=== PATIENT | male | born 1970 | race African-American/Black ===

== ENCOUNTER 2020-07-03 11:04 | Inpatient (IN) | payer OTHER ==
[2020-07-03 14:24] VITALS: BMI 27.6
[2020-07-03] MEDS ORDERED: ONDANSETRON *ODT* 4 MG TABLET SL PRN (14:27)
[2020-07-03] MEDS ORDERED: MAGNESIUM CITRATE 300 ML BOTTLE PO PRN (14:27)
[2020-07-03] MEDS ORDERED: MAG HYDROX/AL HYDROX/SIMETH 30 ML UNIT-DOSE CUP PO PRN (14:27)
[2020-07-03] MEDS ORDERED: BISMUTH SUBSALICYLATE 524 MG/30 ML UD PO PRN (14:27)
[2020-07-03] MEDS ORDERED: chlordiazePOXIDE HCL 25 MG CAPSULE PO PRN (14:27)
[2020-07-03] MEDS ORDERED: NICOTINE POLACRILEX 2 MG GUM BUC PRN (14:27)
[2020-07-03] MEDS ORDERED: ACETAMINOPHEN 325 MG TABLET (FP) PO PRN ×2 (14:27)
[2020-07-03] MEDS ORDERED: IBUPROFEN 400 MG TABLET (FP) PO PRN (14:27)
[2020-07-03] MEDS ORDERED: MAGNESIUM HYDROX 2400MG/30ML ORAL SUSPENSION 30 ML CUP PO PRN (14:27)
[2020-07-03] MEDS ORDERED: MENTHOL/PHENOL 1 EACH UD MM PRN (14:27)
[2020-07-03] MEDS ORDERED: METHOCARBAMOL 500 MG TABLET PO PRN (14:27)
[2020-07-03] MEDS ORDERED: LISINOPRIL 10 MG TABLET PO ONE (15:57)
[2020-07-03] MEDS ORDERED: LISINOPRIL 5 MG TABLET PO SCH (16:00)
[2020-07-03 17:23] LABS: HEMATOCRIT 40.9 % (35.4-49); HEMOGLOBIN 13.2 GM/dL (11.7-16.9); MCH 30.3 pg (25.7-33.7); MCHC 32.3 g/dl (32.0-35.9); MEAN CELL VOLUME 93.8 fl (80-96); MEAN PLT VOLUME 10.1 fl (7.5-11.1); PLATELET COUNT 224 K/MM3 (134-434); RBC 4.36 M/mm3 (4.00-5.60); RDW 14.4 % (11.9-15.9); WHITE BLOOD COUNT 4.9 K/mm3 (4.0-10.0)
[2020-07-03 17:24] LABS: POTASSIUM 3.9 mmol/L (3.5-5.1)
[2020-07-03 17:29] LABS: CALCIUM 8.7 mg/dL (8.5-10.1)
[2020-07-03 17:30] LABS: ALBUMIN 3.8 g/dl (3.4-5.0); BLOOD UREA NITROGEN 13.7 mg/dL (7-18)
[2020-07-03 17:33] LABS: CREATININE 0.9 mg/dL (0.55-1.3)
[2020-07-03 17:34] LABS: TOT PROT 7.2 g/dl (6.4-8.2)
[2020-07-03] MEDS: chlordiazePOXIDE HCL 25 MG CAPSULE PO SCH ×2 (17:36→22:16)
[2020-07-03] MEDS: hydrOXYzine PAMOATE 25 MG CAPSULE (FP) PO SCH ×2 (17:37→22:46)
[2020-07-03] MEDS ORDERED: levETIRAcetam 250 MG TABLET PO SCH (22:00)
[2020-07-03] MEDS ORDERED: levETIRAcetam 250 MG TABLET PO ONE (22:01)
[2020-07-03] MEDS ORDERED: levETIRAcetam 500 MG TABLET (FP) PO ONE (22:01)
[2020-07-03] MEDS: THIAMINE HCL 100 MG TABLET (FP) PO SCH (22:16)
[2020-07-03] MEDS: MELATONIN 5 MG TABLETS PO SCH (22:17)
[2020-07-03] MEDS: GABAPENTIN 400 MG CAPSULE PO SCH (22:45)
[2020-07-03] MEDS: INSULIN (LEVEMIR) 100 UNITS/ML UNITS SQ SCH (22:46)
[2020-07-04] MEDS: chlordiazePOXIDE HCL 25 MG CAPSULE PO SCH ×4 (05:17→22:06)
[2020-07-04] MEDS: GABAPENTIN 400 MG CAPSULE PO SCH ×3 (05:17→22:06)
[2020-07-04] MEDS: hydrOXYzine PAMOATE 25 MG CAPSULE (FP) PO SCH ×5 (05:19→22:07)
[2020-07-04] MEDS: glipiZIDE-XL 2.5 MG TAB.ER.24 PO SCH (06:04)
[2020-07-04] MEDS ORDERED: INSULIN (LEVEMIR) 100 UNITS/ML UNITS SQ SCH (07:00)
[2020-07-04] MEDS: INSULIN SLIDING SCALE (NOVOLOG) 1 VIAL SQ SCH ×3 (07:38→17:35)
[2020-07-04] MEDS ORDERED: levETIRAcetam 250 MG TABLET PO ONE (09:32)
[2020-07-04] MEDS ORDERED: levETIRAcetam 500 MG TABLET (FP) PO ONE (09:32)
[2020-07-04] MEDS ORDERED: LISINOPRIL 10 MG TABLET PO SCH (10:00)
[2020-07-04] MEDS: PRENATAL VITAMINS W/ FOLIC ACID TABLET (FP) PO SCH (10:19)
[2020-07-04] MEDS: levETIRAcetam 500 MG TABLET (FP) PO SCH (22:06)
[2020-07-04] MEDS: THIAMINE HCL 100 MG TABLET (FP) PO SCH (22:06)
[2020-07-04] MEDS: INSULIN (LEVEMIR) 100 UNITS/ML UNITS SQ SCH (22:06)
[2020-07-04] MEDS: MELATONIN 5 MG TABLETS PO SCH (22:10)
[2020-07-05] MEDS: GABAPENTIN 400 MG CAPSULE PO SCH ×3 (05:17→22:08)
[2020-07-05] MEDS: hydrOXYzine PAMOATE 25 MG CAPSULE (FP) PO SCH ×5 (05:18→22:08)
[2020-07-05] MEDS: chlordiazePOXIDE HCL 25 MG CAPSULE PO SCH ×4 (05:18→22:08)
[2020-07-05] MEDS: glipiZIDE-XL 2.5 MG TAB.ER.24 PO SCH (06:21)
[2020-07-05] MEDS: INSULIN SLIDING SCALE (NOVOLOG) 1 VIAL SQ SCH ×3 (06:21→17:54)
[2020-07-05] MEDS: LISINOPRIL 5 MG TABLET PO SCH (10:29)
[2020-07-05] MEDS: PRENATAL VITAMINS W/ FOLIC ACID TABLET (FP) PO SCH (10:30)
[2020-07-05] MEDS: levETIRAcetam 500 MG TABLET (FP) PO SCH ×2 (10:30→22:08)
[2020-07-05] MEDS ORDERED: INSULIN (NOVOLOG) ASPART 100 UNITS/ML 10ML VIAL ONE (11:44)
[2020-07-05] MEDS: MELATONIN 5 MG TABLETS PO SCH (22:07)
[2020-07-05] MEDS: THIAMINE HCL 100 MG TABLET (FP) PO SCH (22:08)
[2020-07-05] MEDS: INSULIN (LEVEMIR) 100 UNITS/ML UNITS SQ SCH (22:08)
[2020-07-06] MEDS ORDERED: chlordiazePOXIDE HCL 10 MG CAPSULE PO PRN
[2020-07-06] MEDS: chlordiazePOXIDE HCL 10 MG CAPSULE PO SCH ×4 (05:40→22:16)
[2020-07-06] MEDS: hydrOXYzine PAMOATE 25 MG CAPSULE (FP) PO SCH ×3 (05:40→10:09)
[2020-07-06] MEDS: GABAPENTIN 400 MG CAPSULE PO SCH ×3 (05:40→22:15)
[2020-07-06] MEDS: glipiZIDE-XL 2.5 MG TAB.ER.24 PO SCH (06:12)
[2020-07-06] MEDS: INSULIN SLIDING SCALE (NOVOLOG) 1 VIAL SQ SCH ×3 (06:13→17:00)
[2020-07-06] MEDS: levETIRAcetam 500 MG TABLET (FP) PO SCH (10:09)
[2020-07-06] MEDS: LISINOPRIL 5 MG TABLET PO SCH (10:09)
[2020-07-06] MEDS: PRENATAL VITAMINS W/ FOLIC ACID TABLET (FP) PO SCH (10:09)
[2020-07-06] MEDS ORDERED: hydrOXYzine PAMOATE 25 MG CAPSULE (FP) PO PRN (10:29)
[2020-07-06] MEDS: levETIRAcetam 250 MG TABLET PO SCH ×2 (14:37→22:12)
[2020-07-06] MEDS ORDERED: INSULIN (NOVOLOG) ASPART 100 UNITS/ML 10ML VIAL ONE (17:03)
[2020-07-06] MEDS: metFORMIN HCL 500 MG TABLET (FP) PO SCH (17:04)
[2020-07-06] MEDS: glipiZIDE 5 MG TABLET (FP) PO SCH (17:05)
[2020-07-06] MEDS ORDERED: glipiZIDE-XL 2.5 MG TAB.ER.24 PO SCH (22:00)
[2020-07-06] MEDS: THIAMINE HCL 100 MG TABLET (FP) PO SCH (22:16)
[2020-07-06] MEDS: MELATONIN 5 MG TABLETS PO SCH (22:17)
[2020-07-06] MEDS: INSULIN (LEVEMIR) 100 UNITS/ML UNITS SQ SCH (22:23)
[2020-07-07] MEDS: GABAPENTIN 400 MG CAPSULE PO SCH ×3 (05:42→22:04)
[2020-07-07] MEDS: chlordiazePOXIDE HCL 10 MG CAPSULE PO SCH ×2 (05:43→17:03)
[2020-07-07] MEDS: metFORMIN HCL 500 MG TABLET (FP) PO SCH ×2 (07:11→17:03)
[2020-07-07] MEDS: glipiZIDE 5 MG TABLET (FP) PO SCH ×2 (07:11→17:03)
[2020-07-07] MEDS: INSULIN SLIDING SCALE (NOVOLOG) 1 VIAL SQ SCH ×3 (07:12→17:03)
[2020-07-07] MEDS: levETIRAcetam 250 MG TABLET PO SCH ×2 (10:12→22:04)
[2020-07-07] MEDS: LISINOPRIL 5 MG TABLET PO SCH (10:12)
[2020-07-07] MEDS: PRENATAL VITAMINS W/ FOLIC ACID TABLET (FP) PO SCH (10:12)
[2020-07-07] MEDS ORDERED: INSULIN (NOVOLOG) ASPART 100 UNITS/ML 10ML VIAL ONE (11:22)
[2020-07-07] MEDS: INSULIN (LEVEMIR) 100 UNITS/ML UNITS SQ SCH (22:04)
[2020-07-07] MEDS: THIAMINE HCL 100 MG TABLET (FP) PO SCH (22:04)
[2020-07-07] MEDS: MELATONIN 5 MG TABLETS PO SCH (22:04)
[2020-07-08] MEDS ORDERED: chlordiazePOXIDE HCL 10 MG CAPSULE PO ONE (05:00)
[2020-07-08] MEDS: GABAPENTIN 400 MG CAPSULE PO SCH (05:47)
[2020-07-08] MEDS: glipiZIDE 5 MG TABLET (FP) PO SCH (06:09)
[2020-07-08] MEDS: metFORMIN HCL 500 MG TABLET (FP) PO SCH (06:09)
[2020-07-08] MEDS: INSULIN SLIDING SCALE (NOVOLOG) 1 VIAL SQ SCH ×2 (06:10→11:23)
[2020-07-08] MEDS: levETIRAcetam 250 MG TABLET PO SCH (10:07)
[2020-07-08] MEDS: LISINOPRIL 5 MG TABLET PO SCH (10:09)
[2020-07-08] MEDS: PRENATAL VITAMINS W/ FOLIC ACID TABLET (FP) PO SCH (10:09)
[2020-07-08] MEDS ORDERED: INSULIN (NOVOLOG) ASPART 100 UNITS/ML 10ML VIAL ONE (11:19)
[2020-07-08 12:59] VITALS: BP 127/78; PULSE 87; TEMP 97.1
== END 2020-07-08 13:30 | disposition other institution (70) | DRG 775 ==
LOC: YASAS 11:04 → Y6N 15:17
PROVIDERS: ADMIT Allergy & Immunology; ATTEND Allergy & Immunology
PROC: HZ2ZZZZ Detoxification Services for Substance Abuse Treatment (ICD-10-PCS; principal; 2020-07-03)
DX: F10.230 Alcohol dependence with withdrawal, uncomplicated (principal); I10 Essential (primary) hypertension; E11.65 Type 2 diabetes mellitus with hyperglycemia; G40.909 Epilepsy, unspecified, not intractable, without status epilepticus; Z79.4 Long term (current) use of insulin; Z79.84 Long term (current) use of oral hypoglycemic drugs
CPT/HCPCS: 36415; 80053; 80177; 82962; 85027; 86780; 93005; 93010; C9803; U0003

== ENCOUNTER 2020-07-12 10:08 | Emergency (ER) | payer OTHER ==
[2020-07-12 10:17] VITALS: PULSE 89; TEMP 97.7; BMI 29.2
[2020-07-12] MEDS ORDERED: ASPIRIN 325 MG TABLET PO ONE (11:11)
[2020-07-12] MEDS ORDERED: ACETAMINOPHEN 325 MG TABLET (FP) PO ONE (11:15)
[2020-07-12] MEDS ORDERED: levETIRAcetam 500 MG TABLET (FP) PO ONE ×2 (11:16→11:24)
[2020-07-12] MEDS ORDERED: ASPIRIN 325 MG ENTERIC COATED TABLET (FP) ONE (11:17)
[2020-07-12] MEDS ORDERED: ACETAMINOPHEN 325 MG TABLET (FP) ONE (11:19)
[2020-07-12 18:51] VITALS: BP 125/84
== END 2020-07-12 18:56 | disposition home or self-care (01) ==
LOC: JER 10:08
DX: G40.89 Other seizures (principal)
CPT/HCPCS: 82962; 99283-25